=== PATIENT | male | born 1980 | race American Indian/Alaskan Native ===

== ENCOUNTER 2017-07-26 10:18 | Emergency (ER) | payer OTHER ==
[2017-07-26 10:33] VITALS: BMI 29.1
[2017-07-26 10:35] VITALS: PULSE 67; RESP 18
--- NOTE | 2017-07-26 11:23 | C.PDOC ---
History Of Present Illness 36 yo male c/o left foot pain since yesterday. Pt notes a piece of plywood fell on his foot. He has boots "that are like sneakers" when the incident happened. He continued working but pain persists. No change in sensation. Time Seen by Provider: 07/26/17 10:59 Chief Complaint (Nursing): Lower Extremity Problem/Injury History Per: Patient History/Exam Limitations: no limitations Onset/Duration Of Symptoms: Days (yesterday) Past Medical History Vital Signs: Last Vital Signs Temp 98.0 F 07/26/17 10:33 Pulse 67 07/26/17 10:33 Resp 18 07/26/17 10:33 BP 118/85 07/26/17 10:33 Pulse Ox 98 07/26/17 12:00 - [facility] Procedures APPLICATION OF SPLINT (10/24/14) INJECT/INFUSE NEC (04/29/07) OTHER CAST APPLICATION (09/13/01) Family History: States: Unknown Family Hx - Social History Hx Tobacco Use: No Hx Alcohol Use: Yes Hx Substance Use: Yes - Immunization History Hx Tetanus Toxoid Vaccination: No Hx Influenza Vaccination: No Review Of Systems Constitutional: Negative for: Fever Musculoskeletal: Positive for: Foot Pain Neurological: Negative for: Weakness, Numbness Physical Exam - Physical Exam Appears: Well, Non-toxic, No Acute Distress Skin: Warm, Dry, Ecchymosis Head: Atraumatic, Normacephalic Eye(s): bilateral: Normal Inspection, EOMI Nose: Normal Oral Mucosa: Moist Neck: Normal, Normal ROM, Supple Chest: Symmetrical Respiratory: No Accessory Muscle Use Back: Normal Inspection Extremity: Normal ROM, Tenderness ((+) tenderness swelling and ecchymosis to the 4th and 5th toes), Capillary Refill (< 2 sec), Swelling Pulses: Left Dorsalis Pedis: Normal, Right Dorsalis Pedis: Normal Neurological/Psych: Oriented x3, Normal Speech, Normal Motor, Normal Sensation ED Course And Treatment O2 Sat by Pulse Oximetry: 98 - Other Rad Foot XR X-Ray: Interpreted by Me, Viewed By Me Interpretation: PROCEDURE: Left Foot Radiographs. HISTORY: trauma att 4th and 5th. COMPARISON: None available. FINDINGS: BONES: Evidence of oblique nondisplaced fractures of the distal 4th and 5th silviano. Remainder the visualized osseous structures appear intact. JOINTS: No dislocation. SOFT TISSUES: Soft tissue swelling. No evidence of radiopaque foreign body. OTHER FINDINGS: None. IMPRESSION: Evidence of oblique nondisplaced fractures of the distal 4th and 5th silviano. Associated soft tissue swelling. Progress Note: Rudy taped and cast shoe applied by fan mail editor. Instructed RICe and follow up with ortho in 1-2 days. Disposition - Disposition Referrals: Selene Lewis MD [Staff Provider] - Disposition: HOME/ ROUTINE Disposition Time: 11:25 Condition: STABLE Additional Instructions: Your xray shows a fracture. It is very important you follow up with orthopedic within 1-4 days. Please apply ice to area 15 minutes three times a day. Take Motrin as needed for pain every 6 hours, with food to not upset stomach. Instructions: Toe Fracture (ED) Forms: [facility] ([place]), Work Excuse - Clinical Impression Clinical Impression: Toes fractured
--- NOTE | 2017-07-26 11:54 | RAD ---
PROCEDURE: Left Foot Radiographs. HISTORY: trauma att 4th and 5th COMPARISON: None available. FINDINGS: BONES: Evidence of oblique nondisplaced fractures of the distal 4th and 5th silviano. Remainder the visualized osseous structures appear intact. JOINTS: No dislocation. SOFT TISSUES: Soft tissue swelling. No evidence of radiopaque foreign body. OTHER FINDINGS: None. IMPRESSION: Evidence of oblique nondisplaced fractures of the distal 4th and 5th silviano. Associated soft tissue swelling.
[2017-07-26 12:14] VITALS: BP 128/84; TEMP 97.6; O2SAT 99
== END 2017-07-26 12:15 | disposition home or self-care (01) ==
LOC: C.ER 10:18
DX: S92.532A Displaced fracture of distal phalanx of left lesser toe(s), initial encounter for closed fracture (principal); W20.8XXA Other cause of strike by thrown, projected or falling object, initial encounter